=== PATIENT | female | born 1955 | race Caucasian/White ===

== ENCOUNTER 2017-01-02 16:14 | Outpatient (CLI) ==
--- NOTE | 2017-01-02 16:33 | DI ---
EXAM: Chest two views HISTORY: Cough, acute bronchitis COMPARISON: 11/1304/12/2015 TECHNIQUE: Two views of the chest were performed FINDINGS: No airspace consolidation. Probable osseous or summation artifact right lung apex. Ther e is no pleural effusion or pneumothorax. The heart is normal in size. The mediastinal contour is unchanged, noting atherosclerosis. There are no acute abnormalities of the bones. IMPRESSION: 1. No acute cardiopulmonary process. 2. Unexpected finding: Probable osseous or summation artifact right lung apex with nodule not excl uded. Recommend radiographic follow-up 3 months for reevaluation. Alternatively, CT could be perfo rmed for further evaluation.
== END 2017-01-02 16:15 | disposition home or self-care (01) ==
LOC: RAD 16:14
PROVIDERS: ATTEND Internal Medicine
DX: J20.9 Acute bronchitis, unspecified (principal)

== ENCOUNTER 2017-01-09 08:00 | Outpatient (CLI) ==
[2017-01-09 08:32] LABS: CREATININE 0.92 mg/dL (0.60-1.30)
--- NOTE | 2017-01-09 09:20 | CT ---
EXAM: CT chest with contrast. HISTORY: Abnormal chest radiograph. Cough. COMPARISON: 01/02/2017. TECHNIQUE: Multiple axial images of the chest were obtained following intravenous administration of 75 mL of Omnipaque 350, low osmolar. Images were reformatted in the sagittal and coronal planes. FINDINGS: There is suggestion of isodense solid nodule projecting off of the posterior right thyroi d lobe at the level thoracic inlet, measuring up to 2.1 1.5 cm on axial image 6. No mediastinal, hi lar, or axillary lymphadenopathy identified. Heart size is normal. There is no pericardial effusio n. Atherosclerotic calcifications present in the aorta and coronary arteries. The lungs are clear without pleural effusion or pneumothorax. No abnormalities seen to correspond r ecent radiograph which was likely due to superimposition of structures. Degenerative changes present in the spine. Limited images of the upper abdomen demonstrate no acute finding. There is a benign fluid density left adrenal nodule on axial image 51, consistent with an adenoma measuring up to 1.2 cm diameter. Left nephrolithiasis also noted. IMPRESSION: 1. No acute abnormality of the chest. No finding to correlate with recent radiograph. 2. Exophytic posterior right thyroid nodule. Consider ultrasound correlation.
== END 2017-01-09 08:01 | disposition home or self-care (01) ==
LOC: RAD 08:00
PROVIDERS: ATTEND Internal Medicine
DX: R91.1 Solitary pulmonary nodule (principal)
CPT/HCPCS: 36415; 82565

== ENCOUNTER 2017-01-12 13:14 | Outpatient (CLI) ==
--- NOTE | 2017-01-12 14:38 | US ---
EXAM: Thyroid ultrasound HISTORY: Right thyroid nodule COMPARISON: CT chest 01/09/2017 TECHNIQUE: Thyroid ultrasound was performed FINDINGS: Right thyroid measures 2.6 x 1.6 x 5.0 cm. Left thyroid measures 1.5 x 1.4 x 4.8 cm. Th yroid isthmus measures 0.3 cm. Thyroid normal in echogenicity and vascularity. There is a mixed so lid and cystic nodule arising from the right inferior thyroid measuring 3.1 x 2.8 x 1.9 cm. There i s a mixed solid and cystic nodule in the left inferior thyroid measuring 0.9 x 0.5 x 0.7 cm. Additi onal cystic nodule left thyroid measuring 0.2 cm. IMPRESSION: 1. 3.1 cm right thyroid nodule. Fine-needle aspiration of this nodule recommended. 2. Additional left thyroid nodules. Sonographic follow-up recommended 12 months for reevaluation
== END 2017-01-12 13:15 | disposition home or self-care (01) ==
LOC: RAD 13:14
PROVIDERS: ATTEND Internal Medicine
DX: E04.1 Nontoxic single thyroid nodule (principal)

== ENCOUNTER 2017-07-05 10:32 | Outpatient (CLI) ==
--- NOTE | 2017-07-05 11:28 | US ---
Exam: Barry-scale and color Doppler ultrasonographic evaluation of the thyroid. Comparison: 01/12/2017. Reason for exam: Multilobular goiter. FINDINGS: The right thyroid lobe measures approximately 5.25 x 2.57 x 1.60 cm. The left thyroid lobe measures approximately 4.69 x 1.75 x 1.25 cm. The thyroid isthmus measures 0.34 cm. In the inferior portion of the right thyroid lobe there is a complex appearing 2.38 x 1.66 x 2.73 cm nodule. In the inferior portion of the left thyroid lobe there is a 0.53 x 0.65 x 0.85 cm complex appearing n odule. Smaller sub centimeter cystic appearing nodules are seen in the superior right and inferior left thyr oid lobes. Impression: 1. Complex appearing nodule in the right inferior thyroid lobe measures 2.73 cm. Recommend endocrine consultation and consider fine-needle aspiration. 2. Otherwise, similar appearing multinodular goiter.
== END 2017-07-05 10:33 | disposition home or self-care (01) ==
LOC: RAD 10:32
PROVIDERS: ATTEND Internal Medicine Endocrinology, Diabetes & Metabolism
DX: E04.2 Nontoxic multinodular goiter (principal)

== ENCOUNTER 2018-07-22 12:48 | Outpatient (CLI) ==
--- NOTE | 2018-07-22 13:31 | CT ---
EXAM: CT of the sinuses without contrast History: Headache, sinusitis. Technique: Multiplanar CT images through the sinuses were obtained without the administration of IV contrast Findings: Orbits are intact. The visualized intracranial contents demonstrate no acute findings. S urrounding soft tissues demonstrate no acute abnormality. No acute fracture or dislocation. Mastoid air cells are clear. Minimal mucosal thickening of the bilateral maxillary sinuses. Paranasal sinu ses are otherwise clear. Nasal septum is bowed to the left. Bilateral ostiomeatal units are not occ luded. Partially visualized degenerative disc disease at C3-4 Impression: Minimal mucosal thickening of the bilateral maxillary sinuses. The paranasal sinuses are otherwise clear.
== END 2018-07-22 12:49 | disposition home or self-care (01) ==
LOC: RAD 12:48
PROVIDERS: ATTEND Internal Medicine
DX: J32.9 Chronic sinusitis, unspecified (principal); R51 Headache

== ENCOUNTER 2019-01-01 13:25 | Outpatient (CLI) ==
--- NOTE | 2019-01-01 14:10 | DI ---
EXAM: Two views of the left heel. History: Left heel pain. Findings: No acute fracture or dislocation. No radiopaque foreign bodies. Joint spaces are preserv ed. 4 mm plantar spur. Impression: 1. No acute osseous abnormality. 2. Small plantar spur
--- NOTE | 2019-01-01 14:11 | DI ---
EXAM: Three views of the left foot. History: Left foot pain. Findings: No acute fracture or dislocation. Hallux valgus deformity. Small plantar spur. Mild kathleen rowing of the first MTP joint. No radiopaque foreign bodies. Impression: 1. No acute osseous abnormality. 2. Hallux valgus deformity. 3. Small plantar spur. 4. 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
== END 2019-01-01 13:26 | disposition home or self-care (01) ==
LOC: RAD 13:25
PROVIDERS: ATTEND Internal Medicine
DX: M25.572 Pain in left ankle and joints of left foot (principal)